=== PATIENT | female | born 1995 | race American Indian/Alaskan Native ===

== ENCOUNTER 2019-10-21 07:40 | Observation (INO) | payer MEDICAID ==
[2019-10-21] MEDS ORDERED: LACTATED RINGERS 1,000 ML ONE (07:48)
[2019-10-21] MEDS ORDERED: D5W/LACTATED RINGERS 1,000 ML IV SCH (08:46)
[2019-10-21] MEDS ORDERED: D5W/LACTATED RINGERS 1,000 ML IV ONE (08:48)
[2019-10-21 10:13] VITALS: BP 113/66
== END 2019-10-21 10:32 | disposition home or self-care (01) ==
LOC: LD 07:40 → INTOOBSV 07:40 → OBSVTOIN 07:40
PROVIDERS: ADMIT Obstetrics & Gynecology; ATTEND Obstetrics & Gynecology
DX: O32.1XX0 Maternal care for breech presentation, not applicable or unspecified (principal); Z3A.38 38 weeks gestation of pregnancy
CPT/HCPCS: G0378; G0379; J7120; J7121

== ENCOUNTER 2020-10-18 16:42 | Emergency (ER) | payer MEDICAID ==
[2020-10-18 16:50] VITALS: BP 117/64
== END 2020-10-19 02:41 | disposition left against medical advice (07) ==
LOC: ED 16:42
DX: R51.9 Headache, unspecified (principal); Z53.21 Procedure and treatment not carried out due to patient leaving prior to being seen by health care provider